=== PATIENT | male | born 1995 | race Two or more races ===

== ENCOUNTER 2017-10-09 11:23 | Emergency (ER) | payer OTHER ==
[~2017-10-09] VITALS: Ht 177.8 cm; Wt 72.7 kg
[~2017-10-09 11:23] MED LIST: HYDR-569 PO; WHEE1EAC12 MC
[2017-10-09] MEDS ORDERED: TETanus/Pertussis (Acell)/Diphther VAC/PF (Tdap-Adult) 0.5ml syringe IM ONE (12:35)
[2017-10-09] MEDS ORDERED: LIDOcaine 1.5% w/epinephrine 1:200,000 5ml ampul IJ ONE (12:35)
[2017-10-09] MEDS ORDERED: HYDR-3965 PO (14:25)
[2017-10-09] MEDS ORDERED: CEPH500C5 PO (14:25)
[2017-10-09] MEDS ORDERED: ceFAZolin 1gm IM kit IM ONE (14:25)
[2017-10-09 14:37] VITALS: BP 143/63
== END 2017-10-09 14:40 | disposition home or self-care (01) ==
LOC: ER 11:23
DX: S41.012A Laceration without foreign body of left shoulder, initial encounter (principal); R51 Headache; Z79.899 Other long term (current) drug therapy; V89.2XXA Person injured in unspecified motor-vehicle accident, traffic, initial encounter; Y93.89 Activity, other specified; Y92.89 Other specified places as the place of occurrence of the external cause; Y99.8 Other external cause status
CPT/HCPCS: 29105; 73030; 90471; 90715; 96372; 99284; A4565; A6222; A6449; J0690; J3490

== ENCOUNTER 2017-10-12 10:35 | Emergency (ER) | payer OTHER ==
[~2017-10-12] VITALS: Ht 177.8 cm; Wt 72.7 kg
[~2017-10-12 10:35] MED LIST changes: +CEPH500C5 PO; +HYDR-3965 PO
[2017-10-12 11:21] VITALS: BP 132/74
== END 2017-10-12 11:22 | disposition home or self-care (01) ==
LOC: ER 10:36
DX: Z48.00 Encounter for change or removal of nonsurgical wound dressing (principal); L08.9 Local infection of the skin and subcutaneous tissue, unspecified
CPT/HCPCS: 99282; A6223; A6251; A6449; 99281

== ENCOUNTER 2018-01-11 11:18 | Emergency (ER) | payer OTHER ==
[~2018-01-11] VITALS: Ht 180.3 cm; Wt 69.0 kg
[~2018-01-11 11:18] MED LIST changes: -HYDR-3965 PO; +HYDR-4383 PO; -HYDR-569 PO
[2018-01-11] MEDS ORDERED: predniSONE 20 mg tablet PO ONE (12:05)
[2018-01-11] MEDS ORDERED: diphenhydrAMINE 25mg capsule PO ONE (12:05)
[2018-01-11] MEDS ORDERED: METH4TAB3 PO (12:11)
[2018-01-11 12:35] VITALS: BP 111/73
== END 2018-01-11 12:40 | disposition home or self-care (01) ==
LOC: ER 11:18
DX: L50.8 Other urticaria (principal)
CPT/HCPCS: 99283; J7512; Q0163

== ENCOUNTER 2018-07-06 09:26 | Emergency (ER) | payer OTHER ==
[~2018-07-06] VITALS: Ht 177.8 cm; Wt 70.5 kg
[~2018-07-06 09:26] MED LIST changes: +METH4TAB3 PO
[2018-07-06] MEDS ORDERED: FAMO40TA73 PO (09:54)
[2018-07-06] MEDS ORDERED: PRED20TA PO (09:54)
[2018-07-06] MEDS ORDERED: DIPH25CA83 PO (09:54)
[2018-07-06 10:03] VITALS: BP 111/80
== END 2018-07-06 10:05 | disposition home or self-care (01) ==
LOC: ER 09:27
DX: T78.40XA Allergy, unspecified, initial encounter (principal); L50.9 Urticaria, unspecified; Z79.899 Other long term (current) drug therapy
CPT/HCPCS: 99283

== ENCOUNTER 2021-09-04 15:42 | Emergency (ER) | payer SELFPAY ==
[~2021-09-04] VITALS: Ht 177.8 cm; Wt 72.7 kg
[~2021-09-04 15:42] MED LIST changes: -CEPH500C5 PO; +DIPH25CA83 PO; +FAMO40TA73 PO
[2021-09-04 16:11] VITALS: BP 121/83
== END 2021-09-04 18:03 | disposition home or self-care (01) ==
LOC: ER 15:43
DX: Z00.00 Encounter for general adult medical examination without abnormal findings (principal); M54.2 Cervicalgia; Z79.899 Other long term (current) drug therapy; Z72.89 Other problems related to lifestyle
CPT/HCPCS: 99283